=== PATIENT | female | born 1950 | race Caucasian/White ===

== ENCOUNTER 2019-12-13 08:37 | Outpatient (REF) | payer MEDICARE, SELFPAY ==
[2019-12-13 11:29] LABS: Glucose Urine UA NEG (NEG); Leukocyte Esterase Urine NEG (NEG); Nitrite Urine NEG (NEG); PH 5.5 (5.0-8.0); Specific Gravity - Urine >= 1.030 (1.005-1.025); Urine Blood 2+ (NEG); Urine Ketones NEG (NEG); Urine Protein NEG (NEG-TRACE)
[2019-12-13 11:34] LABS: Appearance Urine CLOUDY; Color Urine YELLOW
[2019-12-13 11:41] LABS: White Blood Count 4.9 X10*3/uL (4.8-10.8)
[2019-12-13 11:43] LABS: Hematocrit 46.5 % (37-47); Hemoglobin 14.9 g/dl (12.0-16.0); Mean Corpuscular Volume 93.8 fL (80-98); Platelet Count 143 X10*3/uL (160-400); Red Blood Count 4.96 X10*6/uL (4.20-5.50); Red Cell Distribution Width 12.9 % (11.0-16.0)
[2019-12-13 11:52] LABS: Squamous Epithelial Cell Urine 2+ /LPF; WBC Urine 0 /HPF (0-4)
[2019-12-13 11:53] LABS: Bacteria Urine 1+ /LPF
[2019-12-13 12:00] LABS: Alanine Aminotransferase 26 U/L (0-31); Albumin Level 4.2 g/dL (3.5-5.0); Alkaline Phosphatase 68 U/L (39-117); Anion Gap 13 (12-20); Aspartate Amino Transferase 14 U/L (5-31); Bilirubin Total 0.6 mg/dL (0.0-1.0); Blood Urea Nitrogen 15 mg/dL (9-16); Carbon Dioxide 28 mmol/L (22-29); Chloride 106 mmol/L (96-108); Cholesterol 277 mg/dL; Estimated Glomerular Filt Rate > 60; Glucose Fasting 110 mg/dL (60-99); HDL Cholesterol 51 mg/dL; LDL Cholesterol Calculated 189 mg/dl; Potassium 4.7 mmol/l (3.3-5.1); Sodium 142 mmol/L (135-145); Total Protein 6.6 g/dL (6.5-8.0); Triglycerides 185 mg/dL
[2019-12-13 12:03] LABS: Vitamin D 25-OH Total 28.2 ng/mL (>30)
== END 2019-12-13 08:38 | disposition home or self-care (01) ==
LOC: HO.HMGCLDS 08:37
PROVIDERS: PCP Internal Medicine; Visit Provider Internal Medicine
DX: E78.5 Hyperlipidemia, unspecified (principal); E55.9 Vitamin D deficiency, unspecified; R73.9 Hyperglycemia, unspecified
CPT/HCPCS: 36415; 80053; 80061; 81001; 82306; 85027

== ENCOUNTER 2019-12-20 12:22 | Outpatient (REF) | payer MEDICARE, SELFPAY ==
--- NOTE | 2019-12-20 12:30 | XR_ITS ---
EXAMINATION: XR BILATERAL SHOULDER CLINICAL INFORMATION: Pain and bilateral shoulder. COMPARISON: None. TECHNIQUE: 4 views each shoulder. FINDINGS: Right Shoulder: There is loss of right AC joint and glenohumeral joint space with periarticular spurring. There is lateral acromion spurring as well. A small 4 mm loose body suspected along the right shoulder joint. No bony erosive changes. The soft tissues are normal. Left Shoulder: There is no visible acute fracture, dislocation or subluxation seen. There is loss of left AC joint space with periarticular spurring and lateral acromial spurring. The soft tissues are normal. XR/XR shoulder LT min 2V IMPRESSION: Degenerative arthritic changes bilateral shoulder joints with a small loose body suspected along the posterior right shoulder joint space. The soft tissues are normal.
--- NOTE | 2019-12-20 12:30 | XR_ITS ---
EXAMINATION: XR BILATERAL SHOULDER CLINICAL INFORMATION: Pain and bilateral shoulder. COMPARISON: None. TECHNIQUE: 4 views each shoulder. FINDINGS: Right Shoulder: There is loss of right AC joint and glenohumeral joint space with periarticular spurring. There is lateral acromion spurring as well. A small 4 mm loose body suspected along the right shoulder joint. No bony erosive changes. The soft tissues are normal. Left Shoulder: There is no visible acute fracture, dislocation or subluxation seen. There is loss of left AC joint space with periarticular spurring and lateral acromial spurring. The soft tissues are normal. XR/XR shoulder RT min 2V IMPRESSION: Degenerative arthritic changes bilateral shoulder joints with a small loose body suspected along the posterior right shoulder joint space. The soft tissues are normal.
[2019-12-20 14:28] LABS: Alanine Aminotransferase 29 U/L (0-31); Albumin Level 4.3 g/dL (3.5-5.0); Alkaline Phosphatase 70 U/L (39-117); Anion Gap 13 (12-20); Aspartate Amino Transferase 18 U/L (5-31); Bilirubin Total 0.7 mg/dL (0.0-1.0); Blood Urea Nitrogen 13 mg/dL (9-16); Calcium 8.7 mg/dL (8.4-10.2); Carbon Dioxide 28 mmol/L (22-29); Chloride 106 mmol/L (96-108); Cholesterol 277 mg/dL; Estimated Glomerular Filt Rate > 60; Glucose Fasting 100 mg/dL (60-99); HDL Cholesterol 50 mg/dL; LDL Cholesterol Calculated 194 mg/dl; Potassium 4.7 mmol/l (3.3-5.1); Sodium 142 mmol/L (135-145); Total Protein 6.6 g/dL (6.5-8.0); Triglycerides 169 mg/dL
[2019-12-20 14:45] LABS: Estimated Average Glucose 123 mg/dL; Hemoglobin A1c % 5.9 %
== END 2019-12-20 12:23 | disposition home or self-care (01) ==
LOC: HO.HMGCX 12:22
PROVIDERS: PCP Internal Medicine; Visit Provider Internal Medicine
DX: M25.511 Pain in right shoulder (principal); M25.512 Pain in left shoulder
CPT/HCPCS: 73030; 80053; 80061; 83036

== ENCOUNTER → 2020-02-06 09:13 | Outpatient (BNVA) | payer MEDICARE, SELFPAY | PROVIDERS: PCP Internal Medicine; Visit Provider Orthopaedic Surgery | DX: M75.51 Bursitis of right shoulder (principal) | CPT/HCPCS: 20610; 99202; J1100 ==

== ENCOUNTER 2020-04-10 13:00 | Outpatient (RCR) | payer MEDICARE, SELFPAY ==
--- NOTE | 2020-03-01 10:59 | MHC.PT.EP ---
[facility] [place] Office [place] Office [place] Office [address] Frankie Alvarez [address] [phone] F: [phone] F: [phone] F: [phone] F: [phone] Physical Therapy Plan of Care Date of Evaluation: 03/01/20 Date of Surgery: N/A Diagnosis: bursitis of left shoulder, bursitis of right shoulder Assessment: pt presents w/ pain and AROM limitations that may be consistent w/ shoulder, cervical, and magnus-scapular impairments of muscular extensibility. pt's pain may also be result of chronic poor cervicothoracic and shoulder posturing. A gentle stretching and strengthening program would be appropriate to remediate current impairments; however, if she is not progressing as expected a cervical Senait assessment may be necessary to rule in/out cervical nerve root involement. pt reported I feel looser after therapeutic exercise attempted at initial eval. pt presents to physical therapy with pain, decreased range of motion, decreased strength, impaired functional mobility, impaired postural awareness, and gait deviations. pt is a good candidate for skilled PT due to age, potential remediation of impairments, typical disease/condition progression and prognosis, comorbidities, and motivation. pt would benefit from tailored strengthening and stretching exercise program, functional training, gait training, postural re-training, neuromuscular re-education, modalities as needed for pain, equipment safety demonstration. Frequency and Duration: The patient will be seen 2x/wk for 5 wks Short Term Goals: pt will be I w/ HEP to promote self-management of condition. pt will improve R shoulder flexion by 15 degrees to promote ease in reaching for objects on higher shelves. Contact Center Consultant Goals: pt will report statistically significant improvement in self-reported outcome measure, Tiffany, to promote return to PLOF. pt will report <1/10 R shoulder pain w/ washing her hair to promote return to PLOF. Treatment Plan: Modalities to reduce pain, spasms and effusion. Manual therapy to restore motion and function. Therapeutic exercise to improve strength and flexibility. Neuromuscular re-education for posture and balance. Therapeutic activities to return to functional activities of daily living. Electronically signed by: Dayana Acuna PT, DPT Please sign and return to therapist. Thank you for your referral.
--- NOTE | 2020-05-22 14:58 | MHC.PT.DC ---
[facility] [place] Office [place] Office [place] Office [address] Frankie Alvarez [address] [phone] F: [phone] F: [phone] F: [phone] F: [phone] Physical Therapy Discharge Report Diagnosis: bursitis of left shoulder, bursitis of right shoulder Date of Surgery: N/A Date of Evaluation: 03/01/20 Date of Discharge: 04/22/20 Treatments to Date: 11 Cancellations to Date: 0 No Shows to Date: 0 Discharge Status: Improved Function Independent with HEP Discharge Summary: SPADI 49/130. pt I with HEP. no adverse reactions. progressed well over the course of skilled PT. d/c to HEP at this time. Electronically signed by: Ede Nova, PT Please sign and return to therapist. Thank you for your referral.
== END 2020-05-22 14:59 | disposition home or self-care (01) ==
LOC: HO.PTCHIC 13:00
PROVIDERS: Visit Provider Orthopaedic Surgery
DX: M75.51 Bursitis of right shoulder (principal); M75.52 Bursitis of left shoulder
CPT/HCPCS: 97110; 97140; 97161

== ENCOUNTER 2020-04-18 09:40 | Outpatient (REF) | payer MEDICARE, SELFPAY ==
[2020-04-18 11:22] LABS: Hematocrit 45.4 % (37-47); Hemoglobin 14.6 g/dl (12.0-16.0); Mean Corpuscular HGB Conc 32.2 g/dl (31.0-35.0); Mean Corpuscular Hemoglobin 29.8 pg (27.0-33.0); Mean Corpuscular Volume 92.7 fL (80-98); Mean Platelet Volume 12.7 fL (9.4-12.3); Platelet Count 141 X10*3/uL (160-400); Red Cell Distribution Width 12.7 % (11.0-16.0); White Blood Count 5.4 X10*3/uL (4.8-10.8)
[2020-04-18 12:03] LABS: Alanine Aminotransferase 30 U/L (0-31); Albumin Level 4.4 g/dL (3.5-5.0); Alkaline Phosphatase 75 U/L (39-117); Anion Gap 10 (12-20); Aspartate Amino Transferase 19 U/L (5-31); Blood Urea Nitrogen 11 mg/dL (9-16); Calcium 9.1 mg/dL (8.4-10.2); Carbon Dioxide 29 mmol/L (22-29); Chloride 102 mmol/L (96-108); Cholesterol 156 mg/dL; Estimated Glomerular Filt Rate > 60; Glucose Fasting 107 mg/dL (60-99); HDL Cholesterol 47 mg/dL; LDL Cholesterol Calculated 80 mg/dl; Sodium 137 mmol/L (135-145); Total Protein 6.7 g/dL (6.5-8.0); Triglycerides 146 mg/dL
== END 2020-04-18 09:41 | disposition home or self-care (01) ==
LOC: HO.HMGCLDS 09:40
PROVIDERS: PCP Internal Medicine; Visit Provider Internal Medicine
DX: R73.9 Hyperglycemia, unspecified (principal); E78.5 Hyperlipidemia, unspecified; E55.9 Vitamin D deficiency, unspecified; R42 Dizziness and giddiness
CPT/HCPCS: 36415; 80053; 80061; 85027

== ENCOUNTER 2020-05-02 12:44 | Outpatient (REF) | payer MEDICARE, SELFPAY ==
--- NOTE | ~2020-05-02 | MR_ITS ---
EXAMINATION: MR SHOULDER WITHOUT CONTRAST, RIGHT CLINICAL INFORMATION: Injury of right shoulder. COMPARISON: None TECHNIQUE: MRI of the shoulder without contrast was performed on a high-field scanner. Exam is limited as the patient could not complete the entire examination and there is motion-degrading artifact present throughout the exam. FINDINGS: ROTATOR CUFF: Evaluation is limited as above. Supraspinatus: There is a full-thickness defect midsubstance portion of the tendon measuring 12 mm medial to lateral and 8 mm AP. No significant atrophy or fatty infiltration. There is a low signal focus measuring approximately 8 mm at the infraspinatus insertion consistent with calcific tendinosis. Remaining rotator cuff muscles and tendons are unremarkable. BICEPS: Normal. CORACOACROMIAL ARCH: The undersurface of the acromion is curved with no subacromial spur. 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 BURSA: Trace fluid in subacromial-subdeltoid bursa likely related to the rotator cuff tear or associated bursitis. LABRUM/CAPSULE: Normal. GLENOHUMERAL JOINT/MARROW: Small marginal osteophytes along the superior glenoid. Cartilage grossly intact. Overall minimal glenohumeral arthrosis. There is a mild joint effusion and synovitis. MR/MR shoulder RT wo con IMPRESSION: Limited examination as the patient could not tolerate completion of exam and there is motion-degrading artifact throughout the study. Despite this limitation there does appear to be a full-thickness rotator cuff tear of the supraspinatus without atrophy or fatty infiltration of the muscles. Calcific tendinosis of the infraspinatus tendon insertion. Advanced arthrosis of the acromioclavicular joint. Mild arthrosis of the glenohumeral joint with mild joint effusion and synovitis.
== END 2020-05-02 12:45 | disposition home or self-care (01) ==
LOC: HO.MRI 12:44
PROVIDERS: Visit Provider Internal Medicine
DX: S49.91XA Unspecified injury of right shoulder and upper arm, initial encounter (principal); X58.XXXA Exposure to other specified factors, initial encounter; Y93.9 Activity, unspecified; Y92.9 Unspecified place or not applicable; Y99.9 Unspecified external cause status
CPT/HCPCS: 73221

== ENCOUNTER 2020-10-30 09:31 | Outpatient (REF) | payer MEDICARE, SELFPAY ==
[2020-10-30 11:33] LABS: Hematocrit 45.1 % (37-47); Hemoglobin 14.8 g/dl (12.0-16.0); Mean Corpuscular HGB Conc 32.8 g/dl (31.0-35.0); Mean Corpuscular Hemoglobin 30.1 pg (27.0-33.0); Mean Corpuscular Volume 91.9 fL (80-98); Platelet Count 162 X10*3/uL (160-400); Red Blood Count 4.91 X10*6/uL (4.20-5.50); Red Cell Distribution Width 13.2 % (11.0-16.0); White Blood Count 5.2 X10*3/uL (4.8-10.8)
[2020-10-30 11:53] LABS: Alanine Aminotransferase 31 U/L (0-31); Albumin Level 4.4 g/dL (3.5-5.0); Alkaline Phosphatase 71 U/L (39-117); Anion Gap 13 (12-20); Aspartate Amino Transferase 18 U/L (5-31); Bilirubin Total 0.8 mg/dL (0.0-1.0); Blood Urea Nitrogen 11 mg/dL (9-16); Calcium 9.8 mg/dL (8.4-10.2); Carbon Dioxide 24 mmol/L (22-29); Chloride 109 mmol/L (96-108); Cholesterol 184 mg/dL; Estimated Average Glucose 126 mg/dL; Estimated Glomerular Filt Rate > 60; Glucose Fasting 113 mg/dL (60-99); HDL Cholesterol 54 mg/dL; Hemoglobin A1C 159.7601 umol/L; LDL Cholesterol Calculated 104 mg/dl; Potassium 4.5 mmol/L (3.3-5.1); Sodium 141 mmol/L (135-145); Total Protein 6.6 g/dL (6.5-8.0); Triglycerides 131 mg/dL
== END 2020-10-30 09:32 | disposition home or self-care (01) ==
LOC: HO.HMGCLDS 09:31
PROVIDERS: PCP Internal Medicine; Visit Provider Internal Medicine
DX: E55.9 Vitamin D deficiency, unspecified (principal); E78.5 Hyperlipidemia, unspecified; R73.9 Hyperglycemia, unspecified
CPT/HCPCS: 36415; 80053; 80061; 82306; 83036; 85027

== ENCOUNTER 2021-02-06 14:19 | Outpatient (REF) | payer MEDICARE, SELFPAY ==
--- NOTE | ~2021-02-06 | FL_ITS ---
EXAMINATION: XR MODIFIED BARIUM SWALLOW CLINICAL INFORMATION: GERD COMPARISON: None TECHNIQUE: Fluoroscopy provided for modified barium swallow FINDINGS: Modified barium swallow performed by speech pathologist. Patient swallowed liquids and solids of different consistencies. No aspiration is seen. FLUOROSCOPY TIME: 0.9 minutes DOSE AREA PRODUCT: 0.9 gycm2 (microgray-meter squared) FL/FL barium swallow modified IMPRESSION: Modified barium swallow performed by speech pathologist.. No aspiration seen. See speech pathology report for details.
--- NOTE | 2021-02-06 16:59 | MHC.SL.IMP ---
Date of Plan of Treatment: 02/06/21 Onset of Symptoms/Illness: 02/04/21 Date Treatment Started: 02/06/21 Admitting Diagnosis: Bursitis of left shoulder and right shoulder GERD High cholesterol Hyperglycemia Hyperlipidemia Ingrown toenail of both feet Vertigo Vitamin D deficiency Primary Speech & Language Diagnosis: R13.14 Pharyngoesophageal Phase Dysphagia Reason for Today's Visit: 49874 Modified Barium Swallow Study Pre-evaluation Dietary Consistencies: Regular Pre-evaluation Liquid Consistency: Thin Pre-evaluation Medication Administration: Whole with Liquid Medical History: Modified Barium Swallow Study Fluoroscopic Evaluation of Swallowing Function CPT Code 30490 Evaluation Year: 2020 Reason for Study: Patient reports that she regurgitates food. Referring Physician: Karly Pineda MD Evaluating Clinician: Emmanuelle Clemente M.A., CCC-MANAGER PROVIDER RELATIONS Study Number: 1 Patient Name: Asmita Chase Status: Outpatient, Ambulatory Age: 70 Gender: Female MEDICAL HISTORY: Year of Onset or Diagnosis: 2019 Comorbidities: Bursitis of left shoulder and right shoulder GERD High cholesterol Hyperglycemia Hyperlipidemia Ingrown toenail of both feet Vertigo Vitamin D deficiency Current (pre-evaluation) Intake/Diet: Route: PO Diet Grade: Regular Liquid Consistencies: Thin Pre-Study Functional Oral Intake Scale (FOIS): 7- Total oral intake with no restrictions Pain: None reported at time of study SUBJECTIVE: Patient is a 70 year old female who attended this exam unaccompanied. Patient is Swedish-speaking and was seen by a bilingual speech-language pathologist who speaks Swedish. Patient reports onset of dysphagia approximately 1 year ago. Patient denies pain when swallowing. Patient reports regurgitation and vomiting during meals, and generally feeling unwell after eating. Oral Motor Exam Facial Symmetry: Symmetrical Mouth Occlusion: Normal Oral-Facial Teeth Characteristics: Intact/Normal Tongue Size: Normal Tongue Frenum Length: Normal Is patient able to manage secretions?: Yes Food and Liquid Trials: Oral Impairment: Lip Closure: 0=No labial escape Oral Impairment: Tongue Control During Bolus Hold: 0=Cohesive bolus between tongue to palatal seal Oral Impairment: Bolus Preparation/Mastication: 0=Timely and efficient chewing and mashing Oral Impairment: Bolus Transport/Lingual Motion: 2=Slowed tongue motion Oral Impairment: Oral Residue: 1=Trace residue lining oral structures Oral Impairment:Initiation of Pharyngeal Swallow: 2=Bolus head at posterior laryngeal surface of epiglottis Pharyngeal Impairment: Soft Palate Elevation: 0=No bolus between soft palate (SP)/pharyngeal wall (PW) Pharyngeal Impairment: Laryngeal Elevation: 1=Partial thyroid cartilage/arytenoids to epiglottic petiole movement Pharyngeal Impairment: Anterior Hyoid Excursion: 0=Complete anterior movement Pharyngeal Impairment: Epiglottic Movement: 1=Partial inversion Pharyngeal Impairment: Laryngeal Vestibular Closure:: 1=Incomplete: narrow column air/contrast in laryngeal vestibule Pharyngeal Impairment: Pharyngeal Stripping Wave: 0=Present: complete Pharyngeal Impairment: Pharyngeal Contraction: Did not test Pharyngeal Impairment: Pharyngoesophageal Segment Openin=Complete distension and complete duration: no obstruction of flow Pharyngeal Impairment: Tongue Base (TB) Retraction: 2=Narrow column of contrast/air between TB and posterior PW Pharyngeal Impairment: Pharyngeal Residue: 1=Trace residue within or on pharyngeal structures Pharyngeal Impairment: Esophageal Clearance Upright Position: Did not test Impressions and Recommendations Clinical Observations: OBJECTIVE: Time-out: performed at 02:45 Evaluation Start: 02:30; Stop: 02:40 Patient Positioning: Seated/Reclined less than 70 degrees Viewing Planes: LATERAL ONLY Contrast: MBSImP? Standardized Protocol using commercially prepared, standardized Barium viscosities, including: Varibar? THIN LIQUID (40% w/v, <15 cps) , 1/2 Shortbread Cookie (1 x1 x.25 ) MBSImP ID: [id number] MBSImP Results: Lip closure for intraoral bolus containment resulted in no labial escape. Tongue control during bolus hold maintained a cohesive bolus held between tongue to palate seal. Bolus preparation and mastication resulted in timely and efficient chewing and mashing. Bolus transport/lingual motion was with slowed tongue motion. Oral residue was a trace, lining oral structures. Initiation of the pharyngeal swallow occurred as the bolus head was at the posterior laryngeal surface of the epiglottis. Soft palate elevation resulted in no bolus between the soft palate and the pharyngeal wall. Laryngeal elevation was decreased, with partial superior movement of the thyroid cartilage/partial approximation of the arytenoids to the epiglottic petiole. Anterior hyoid excursion demonstrated complete anterior movement. Epiglottic movement resulted in partial inversion. Laryngeal vestibular closure was incomplete, with a narrow column of air/contrast noted within the laryngeal vestibule at the height of the swallow. Pharyngeal stripping wave was present and complete. Pharyngeal contraction could not be determined due to logistical reasons not related to physiologic impairment. Pharyngoesophageal segment opening was completely distended for complete duration with no obstruction of bolus flow. Tongue base retraction allowed a narrow column of contrast or air between the retracted tongue base and the posterior pharyngeal wall. Pharyngeal residue was a trace within or on pharyngeal structures. Esophageal clearance in the upright position could not be assessed due to logistical reasons not related to physiologic impairment. Oral Impairment Score: 4 Pharyngeal Impairment Score: 5 (absence of score, component 13) Esophageal Impairment Score: --- (absence of score, component 17) Laryngeal Penetration and Aspiration: Penetration was observed in today's study. Thin Contrast entered the airway, remained above the vocal folds, and was ejected from the airway. ASSESSMENT: Clinician Assessment: This exam was conducted by a multidisciplinary team, which included radiologist, radiologist tool rental technician, speech-language pathologist, and student success counselor clinician. Patient was seated at 90 degree upright position for lateral view only. Patient fed herself without any difficulty. Patient trialed the following liquid and solid consistencies: 5 mL thin liquid barium, sequential cup sip thin liquid barium, pureed solid (mixture applesauce with barium paste), ground solid (mixture chicken salad with barium paste), regular solid (Adalgisa Doone cookie coated with barium). Good labial seal with no interlabial escape. Cohesive bolus between tongue to palatal seal, with no premature posterior spillage prior to initiation of pharyngeal swallow trigger. Mildly slowed AP transport of bolus. Timely and efficient rotary chewing pattern, resulting in good oral clearance across all consistencies. Delayed pharyngeal swallow trigger initiated when bolus head reached posterior laryngeal surface of epiglottis. Partial laryngeal elevation with partial inversion of epiglottis. Note episode of flash penetration when patient was taking sequential sips of liquid. Contrast initially coated posterior surface of epiglottis and spontaneously ejected. No evidence of aspiration with solids and liquids. No nasopharyngeal reflux. Good clearance of valleculae and pyriform sinuses. Trace residue on tongue blade and tongue base. No obstruction of flow through PES. Liquid Intake Recommendation: Thin Liquid Intake Strategies: Small Sips Dietary Recommendations: Regular Medication Administration: Whole with Liquid Compensatory Strategies Recommended: Sitting Upright (90 deg) Small Bites and Sips Rate of Ingestion Change Supervision during eating and or drinking: None Needed Recommendation for Speech Therapy: NA:Typical Evaluation PLAN: Intake Recommendations: Route: PO Diet Grade: Regular Liquid Consistencies: Thin Post-Study Functional Oral Intake Scale (FOIS): 7- Total oral intake with no restrictions Recommend patient to resume unmodified consistencies regular solids and thin liquids. Patient may benefit from a referral to a negative developer specialist given her reports of esophageal dysphagia (i.e. vomiting/ regurgitation). Suggested Referrals: The patient might benefit from a referral to: Gastroenterology Indication for Referral: Patient?s complaints of vomiting/regurgitation. Therapy Recommendations: Therapy will be discontinued Prognosis for Improvement: The prognosis for the patient to meet nutritional needs by mouth is excellent based on degree of impairment. Clinician - Supplemental, Miscellaneous Communication: It is important to note MBSS objective studies are snapshots in time and Patient function might vary with factors such as time of day or concomitant medical conditions. For this reason, the final treatment plan for this patient should rest with their medical care team. Additional recommendations should be considered with the totality of the Patient in mind. Thank for the opportunity to participate in the care of this patient. If you have any questions about the content of this report, please contact the [facility]. Education: Education regarding findings from today's study and plans for therapy were provided to Patient only through Verbal Instruction. Understanding was expressed by the Patient only. Sql Database Developer Clinician/Clinical Fellow: Yes: Mayra Minor Supervisory Statement: N/A Speech Language Pathologist: Emmanuelle Clemente M.A., CCC-MANAGER PROVIDER RELATIONS
== END 2021-02-06 14:20 | disposition home or self-care (01) ==
LOC: HO.XRAY 14:19
PROVIDERS: Visit Provider Internal Medicine
DX: K21.9 Gastro-esophageal reflux disease without esophagitis (principal)
CPT/HCPCS: 74230; 92611

== ENCOUNTER 2021-04-30 09:19 | Outpatient (REF) | payer MEDICARE, SELFPAY ==
[2021-04-30 11:58] LABS: Hematocrit 45.2 % (37.0-47.0); Hemoglobin 14.3 g/dl (12.0-16.0); Mean Corpuscular HGB Conc 31.6 g/dl (31.0-35.0); Mean Corpuscular Hemoglobin 29.9 pg (27.0-33.0); Mean Corpuscular Volume 94.4 fL (80.0-98.0); Mean Platelet Volume 12.3 fL (9.4-12.3); Platelet Count 147 X10*3/uL (160-400); Red Blood Count 4.79 X10*6/uL (4.20-5.50); Red Cell Distribution Width 13.4 % (11.0-16.0); White Blood Count 5.3 X10*3/uL (4.8-10.8)
[2021-04-30 12:05] LABS: Estimated Average Glucose 123 mg/dL; Hemoglobin A1c % 5.9 %
[2021-04-30 12:23] LABS: Alanine Aminotransferase 27 U/L (0-31); Albumin Level 4.2 g/dL (3.5-5.0); Alkaline Phosphatase 75 U/L (39-117); Anion Gap 11 (12-20); Aspartate Amino Transferase 16 U/L (5-31); Bilirubin Total 0.9 mg/dL (0.0-1.0); Blood Urea Nitrogen 12 mg/dL (9-16); Calcium 9.5 mg/dL (8.4-10.2); Carbon Dioxide 27 mmol/L (22-29); Chloride 107 mmol/L (96-108); Cholesterol 173 mg/dL; Estimated Glomerular Filt Rate > 60; Glucose Fasting 117 mg/dL (60-99); HDL Cholesterol 49 mg/dL; LDL Cholesterol Calculated 95 mg/dl; Potassium 4.3 mmol/L (3.3-5.1); Sodium 141 mmol/L (135-145); Total Protein 6.6 g/dL (6.5-8.0); Triglycerides 148 mg/dL
[2021-04-30 12:26] LABS: TSH reflex Free T4 1.31 uIU/mL (0.32-4.0); Vitamin D 25-OH Total 33.2 ng/mL (>30)
== END 2021-04-30 09:20 | disposition home or self-care (01) ==
LOC: HO.HMGCLDS 09:19
PROVIDERS: Visit Provider Internal Medicine
DX: E55.9 Vitamin D deficiency, unspecified (principal); E78.5 Hyperlipidemia, unspecified; R73.9 Hyperglycemia, unspecified
CPT/HCPCS: 36415; 80053; 80061; 82306; 83036; 84443; 85027

== ENCOUNTER → 2021-05-27 08:05 | Outpatient (BNVA) | payer MEDICARE, SELFPAY | PROVIDERS: PCP Internal Medicine; Visit Provider Obstetrics & Gynecology | DX: N81.6 Rectocele (principal) | CPT/HCPCS: 99202 ==

== ENCOUNTER 2022-02-19 09:40 | Outpatient (REF) | payer MEDICARE, SELFPAY ==
[2022-02-19 11:11] LABS: MANUAL DIFF FLAG NO
[2022-02-19 11:25] LABS: Basophils Percent Auto 0.6 % (0-2); Eosinophils Absolute Auto 0.1 X10*3/uL (0.0-0.4); Eosinophils Percent Auto 1.4 % (0-4); Hematocrit 46.4 % (37.0-47.0); Hemoglobin 14.9 g/dl (12.0-16.0); Lymphocytes Absolute Auto 1.8 X10*3/uL (1.2-4.9); Lymphocytes Percent Auto 35.9 % (20-40); Mean Corpuscular HGB Conc 32.1 g/dl (31.0-35.0); Mean Corpuscular Hemoglobin 29.7 pg (27.0-33.0); Mean Corpuscular Volume 92.4 fL (80.0-98.0); Mean Platelet Volume 11.3 fL (9.4-12.3); Monocytes Absolute Auto 0.3 X10*3/uL (0.1-1.2); Monocytes Percent Auto 6.7 % (2-11); Neutrophils Absolute Auto 2.7 x10*3/uL (2.0-8.3); Neutrophils Percent Auto 55.4 % (45-73); Platelet Count 154 X10*3/uL (160-400); Red Blood Count 5.02 X10*6/uL (4.20-5.50); Red Cell Distribution Width 13.1 % (11.0-16.0); White Blood Count 4.9 X10*3/uL (4.8-10.8)
[2022-02-19 11:36] LABS: Estimated Average Glucose 114 mg/dL; Hemoglobin A1c % 5.6 %
[2022-02-19 11:59] LABS: Alanine Aminotransferase 15 U/L (0-31); Albumin Level 4.2 g/dL (3.5-5.0); Alkaline Phosphatase 81 U/L (39-117); Anion Gap 10 (12-20); Aspartate Amino Transferase 12 U/L (5-31); Bilirubin Total 0.8 mg/dL (0.0-1.0); Blood Urea Nitrogen 15 mg/dL (9-16); Calcium 9.6 mg/dL (8.4-10.2); Carbon Dioxide 30 mmol/L (22-29); Chloride 106 mmol/L (96-108); Cholesterol 229 mg/dL; Estimated Glomerular Filt Rate > 60; Glucose Fasting 102 mg/dL (60-99); HDL Cholesterol 51 mg/dL; LDL Cholesterol Calculated 147 mg/dl; Potassium 4.7 mmol/L (3.3-5.1); Sodium 141 mmol/L (135-145); TSH reflex Free T4 1.92 uIU/mL (0.32-4.0); Total Protein 6.6 g/dL (6.5-8.0); Triglycerides 155 mg/dL; Vitamin D 25-OH Total 30.6 ng/mL (>30)
== END 2022-02-19 09:41 | disposition home or self-care (01) ==
LOC: HO.HMGCLDS 09:40
PROVIDERS: PCP Internal Medicine; Visit Provider Internal Medicine
DX: Z00.00 Encounter for general adult medical examination without abnormal findings (principal); E55.9 Vitamin D deficiency, unspecified; E78.5 Hyperlipidemia, unspecified; R73.9 Hyperglycemia, unspecified
CPT/HCPCS: 36415; 80053; 80061; 82306; 83036; 84443; 85025

== ENCOUNTER 2023-08-21 07:52 | Outpatient (REF) | payer MEDICARE, SELFPAY ==
[2023-08-21 10:24] LABS: MANUAL DIFF FLAG NO
[2023-08-21 10:34] LABS: Basophils Percent Auto 0.7 % (0-2); Eosinophils Absolute Auto 0.1 X10*3/uL (0.0-0.4); Eosinophils Percent Auto 1.5 % (0-4); Hemoglobin 14.9 g/dl (12.0-16.0); Imm Gran Abs Auto 0.01 X10*3/uL (0.00-0.03); Imm Gran Pct Auto 0.2 % (0.0-0.4); Lymphocytes Percent Auto 38.2 % (20-40); Mean Corpuscular HGB Conc 32.4 g/dl (31.0-35.0); Mean Corpuscular Volume 92.7 fL (80.0-98.0); Mean Platelet Volume 12.1 fL (9.4-12.3); Monocytes Absolute Auto 0.4 X10*3/uL (0.1-1.2); Monocytes Percent Auto 7.5 % (2-11); Neutrophils Absolute Auto 2.8 x10*3/uL (2.0-8.3); Neutrophils Percent Auto 51.9 % (45-73); Platelet Count 149 X10*3/uL (160-400); Red Blood Count 4.96 X10*6/uL (4.20-5.50); Red Cell Distribution Width 13.5 % (11.0-16.0); White Blood Count 5.3 X10*3/uL (4.8-10.8)
[2023-08-21 10:42] LABS: Estimated Average Glucose 120 mg/dL; Hemoglobin A1c % 5.8 % (<6.0)
[2023-08-21 10:58] LABS: Alanine Aminotransferase 15 U/L (0-31); Albumin Level 4.1 g/dL (3.5-5.0); Alkaline Phosphatase 74 U/L (39-117); Anion Gap 10 (12-20); Aspartate Amino Transferase 14 U/L (5-31); Bilirubin Total 0.5 mg/dL (0.0-1.0); Blood Urea Nitrogen 13 mg/dL (9-16); Calcium 9.5 mg/dL (8.4-10.2); Carbon Dioxide 30 mmol/L (22-29); Chloride 106 mmol/L (96-108); Cholesterol 220 mg/dL (<200); Estimated Glomerular Filt Rate > 60; Glucose Fasting 115 mg/dL (60-99); HDL Cholesterol 54 mg/dL (>40); LDL Cholesterol Calculated 129 mg/dL (<100); Potassium 4.3 mmol/L (3.3-5.1); Sodium 142 mmol/L (135-145); Total Protein 6.8 g/dL (6.5-8.0); Triglycerides 189 mg/dL (<150)
[2023-08-21 11:01] LABS: Vitamin D 25-OH Total 60.7 ng/mL (>30)
== END 2023-08-21 07:53 | disposition home or self-care (01) ==
LOC: HO.HMGCLDS 07:52
PROVIDERS: PCP Internal Medicine; Visit Provider Internal Medicine
DX: Z00.00 Encounter for general adult medical examination without abnormal findings (principal); E78.5 Hyperlipidemia, unspecified; R73.9 Hyperglycemia, unspecified; E55.9 Vitamin D deficiency, unspecified
CPT/HCPCS: 36415; 80053; 80061; 82306; 83036; 84443; 85025

== ENCOUNTER 2023-08-27 09:01 | Outpatient (AMB) | payer MEDICARE, SELFPAY ==
[2023-08-27 09:04] VITALS: BP 124/80; PULSE 76; O2SAT 98; BMI 31.9
--- NOTE | 2023-08-27 09:04 | A.OFFPC_ITS ---
Vital Signs 08/27/23 09:04 Height 5 ft 4 in Weight 186 lb BMI 31.9 BP 124/80 Blood Pressure Location Lt brachial Position Sitting Pulse 76 Pulse Source Pulse Oximeter Pulse Oximetry (%) 98 Oxygen Delivery Method Room Air Intake Visit Reasons: Annual PE Intake Note: Pt is here today for PE. Allergies No Known Allergies Allergy (Verified 08/27/23 09:07) Medication List - Last Reconciled 08/27/23 by Karly Pineda MD cholecalciferol (vitamin D3) 50 mcg PO DAILY desoximetasone 0.25% 1 appl topical DAILY PRN rosuvastatin 10 mg PO DAILY Tobacco use date assessed: 08/27/23 Fall risk assessment: No Falls in past year Last assessed Fall Risk: 08/27/23 Dental Screening Dental Screen Date: 08/27/23 Did you have a dental visit in the last 12 months?: Yes Did you have a dental problem in the last 6 months where you did not have access to dental care?: No Was dental information given to patient?: Patient has dentist HPI Annual PE HPI Details Pt presents for PE. [facility] Medical History Trochanteric bursitis of left hip Uterine prolapse GERD (gastroesophageal reflux disease) Ingrown toenail of both feet Right shoulder injury Vertigo Bursitis of right shoulder Bursitis of left shoulder High cholesterol Normal Pap smear Mammogram normal Vitamin D deficiency Hyperglycemia Annual physical exam Shoulder pain, bilateral Hyperlipidemia Surgical History H/O colonoscopy No pertinent past surgical history Family History Mother No problems noted. Father No problems noted. Social History Housing: House Alcohol intake: never Patient Tobacco Use Status: Current everyday Tobacco user Tobacco use type: Cigarette Cigarettes Per Day: 3 e-Cigarette/Vaping Use: Never Used service: No Current occupational status: retired Current occupation: right handed Cognitive needs: No Hearing needs: No Vision needs: Yes Female Reproductive History Menstrual Age of Menarche: 12 Questionnaire PHQ-9 Over the last 2 weeks, how often have you been bothered by any of the following problems? 1. Little interest or pleasure in doing things: not at all 2. Feeling down, depressed, or hopeless: not at all 3. Trouble falling or staying asleep, or sleeping too much: not at all 4. Feeling tired or having little energy: not at all 5. Poor appetite or overeating: not at all 6. Feeling bad about yourself - or that you are a failure or have let yourself or your family down: not at all 7. Trouble concentrating on things, such as reading the newspaper or watching television: not at all 8. Moving or speaking so slowly that other people could have noticed. Or the opposite - being so fidgety or restless that you have been moving around a lot more than usual: not at all 9. Thoughts that you would be better off or of hurting yourself in some way: not at all Total score: 0 Depression Screening Interpretation: Negative Depression Screening Done: Yes Source: Developed by Drs. Bruno Arrington, Nae Mejia, Shakeel Penny and colleagues, with an educational bolivar from [employer]. Thrive Questionnaire Date Thrive assessed: 08/27/23 I am a: Patient What is your living situation today?: I have a steady place to live Within the past 12 months, did the food you bought not last and you didn't have the money to get more?: Never true Within the past 12 months, did you worry whether your food would run out before you got money to buy more?: Never true Do you have trouble paying for medicines?: No Do you have trouble getting transportation to medical appointments?: No Do you have trouble paying your heating and electricity bill?: No Do you have trouble taking care of your child, family member or friend?: No Do you have trouble with day-to-day activities such as bathing, preparing meals, shopping, managing finances, etc.?: No Are you currently unemployed and looking for a job?: No Are you interested in more education?: No Please select the resources that you would like help with: None THRIVE Score: 0 AUDIT C Alcohol Use Questionnaire (AUDIT-C) 1. How often do you have a drink containing alcohol?: Never 3. How often do you have six or more drinks on one occasion?: Never Total Score: 0 POLO-7 AMB Questionnaire POLO-7 Date POLO - 7 assessed: 08/27/23 Feeling nervous, anxious, or on edge: 0 = Not at all Not being able to stop or control worryin = Not at all Worrying too much about different things: 0 = Not at all Trouble relaxin = Not at all Being so restless that it is hard to sit still: 0 = Not at all Becoming easily annoyed or irritable: 0 = Not at all Feeling afraid as if something awful might happen: 0 = Not at all Total POLO-7 score (0-4 normal; 5-9 mild; 10-14 moderate; 15-21 severe): 0 Source: Developed by Drs. Bruno Arrington, Nae Mejia, Shakeel Penny and colleagues, with an educational bolivar from [employer]. Review of Systems Const All systems reviewed & are unremarkable except as noted in HPI and below Reports no additional complaints Eyes Reports no additional complaints ENT Reports no additional complaints Card Reports no additional complaints Resp Reports no additional complaints GI Reports no additional complaints Physical exam (Primary Care) Vital Signs: Last Vital Signs Pulse 76 08/27/23 09:04 BP 124/80 08/27/23 09:04 Pulse Ox 98 08/27/23 09:04 Oxygen Delivery Method Room Air 08/27/23 09:04 BMI result Body Mass Index 31.9 Tobacco/Smoking Status: Tobacco use Status Tobacco use date assessed 08/27/23 08/27/23 09:10 Patient Tobacco Use Status Current everyday Tobacco 08/27/23 09:05 Tobacco use type Cigarette 08/27/23 09:05 e-Cigarette/Vaping Use Never Used 08/27/23 09:05 PHQ-9: PHQ-9 Score PHQ-9: Total score 0 08/27/23 09:10 Depression Screening Interpretation: Negative Thrive Assessment: Date of Thrive Assessment Date Thrive assessed 08/27/23 08/27/23 09:10 Const General: no acute distress HENMT Head: Yes normal to inspection Face and sinus: Yes normal facial exam Mouth: Normal oral and palatal mucosa present Throat: Yes posterior oropharynx normal Eyes General: appearance normal, both eyes and all related structures Neck Neck: Yes no lymphadenopathy and Yes supple Resp Effort & Inspection: normal respiratory effort Auscultation: clear to auscultation bilaterally Cardio Rhythm: regular rhythm Heart sounds: S1 normal heart sound present and S2 normal heart sound present GI Inspection: Yes normal to inspection Palpation (GI): Soft to palpation Percussion: Yes normal to percussion Auscultation: normal bowel sounds Assessment and Plan Assessment & Plan (1) Hyperlipidemia: Code(s): E78.5 - Hyperlipidemia, unspecified Plan: Medication compliance discussed with the patient. Continue low-cholesterol diet and Crestor (2) Annual physical exam: Code(s): Z00.00 - Encounter for general adult medical examination without abnormal findings Plan: Well-balanced diet regular physical activity weight loss discussed with the patient. She has up-to-date with the mammogram. Patient declined colonoscopy Cologuard will be sent. Follow-up in 1 year with fasting labs. (3) Hyperglycemia: Code(s): R73.9 - Hyperglycemia, unspecified Plan: ADA diet increase exercise weight loss discussed with the patient Orders: Orders Comprehensive [place]. Panel Fast 1 Year E78.5 - Hyperlipidemia, unspecified, R73.9 - Hyperglycemia, unspecified, Z00.00 - Encounter for general adult medical examination without abnormal findings Complete Blood Count Auto Diff 1 Year E78.5 - Hyperlipidemia, unspecified, R73.9 - Hyperglycemia, unspecified, Z00.00 - Encounter for general adult medical examination without abnormal findings Microalbumin, Random (w Creat) 1 Year E78.5 - Hyperlipidemia, unspecified, R73.9 - Hyperglycemia, unspecified, Z00.00 - Encounter for general adult medical examination without abnormal findings Lipid Panel 1 Year E78.5 - Hyperlipidemia, unspecified, R73.9 - Hyperglycemia, unspecified, Z00.00 - Encounter for general adult medical examination without abnormal findings Vitamin D 25-OH Total 1 Year E78.5 - Hyperlipidemia, unspecified, R73.9 - Hyperglycemia, unspecified, Z00.00 - Encounter for general adult medical examination without abnormal findings Hemoglobin A1c 1 Year E78.5 - Hyperlipidemia, unspecified, R73.9 - Hyperglycemia, unspecified, Z00.00 - Encounter for general adult medical examination without abnormal findings Referrals Cologuard Test Z12.11 - Encounter for screening for malignant neoplasm of colon, Z12.12 - Encounter for screening for malignant neoplasm of rectum Medications: New cholecalciferol (vitamin D3) 50 mcg PO DAILY 90 caps 3RF desoximetasone 0.25% 1 appl topical DAILY PRN 60 grams 0RF skin irritation Changed From rosuvastatin (Crestor) 10 mg PO DAILY 90 tabs 3RF To rosuvastatin 10 mg PO DAILY 90 tabs 3RF Discontinued ergocalciferol (vitamin D2) Discontinued Reason: Doctor's Order 1,250 mcg PO QWEEK 12 caps 3RF E55.9 - Vitamin D deficiency, unspecified Coding Level of Care Code Est Pt Prev Care >65y(22769) Diagnoses Hyperlipidemia E78.5 Annual physical exam Z00.00 Hyperglycemia R73.9
== END 2023-08-27 09:38 | disposition home or self-care (01) ==
PROVIDERS: PCP Internal Medicine; Visit Provider Internal Medicine
DX: E78.5 Hyperlipidemia, unspecified (principal); Z00.00 Encounter for general adult medical examination without abnormal findings; R73.9 Hyperglycemia, unspecified
CPT/HCPCS: 99397

== ENCOUNTER 2024-07-22 11:56 | Outpatient (AMB) | payer MEDICARE, SELFPAY ==
--- OUTSIDE RECORDS SUMMARY | 2024-07-22 12:27 | XMS_ITS | Clinical Summary ---
Author Organization [facility] Address [address] [place] [address] Care Team Providers Care Staff Midwife Name Role Phone Nirali Kruger MD Primary Care Provider [phone] Allergies Active Allergy Reactions Criticality Noted Date Comments Latex Rash/Dermatitis Low 12/19/2015 Medications Cholecalciferol (VITAMIN D PO) Take 1 tablet by mouth once a week. Active simvastatin (ZOCOR) 40 MG tablet Take 40 mg by mouth daily. Active ibuprofen (MOTRIN) 200 MG tablet Take 200 mg by mouth 4 times daily (every 6 hours) as needed for mild pain. 2 tabs Active Social History Tobacco Use Types Packs/Day Years Used Date Smoking Tobacco: Some Days Cigarettes Comments:1 pack/ week Alcohol Use Standard Drinks/Week Comments Yes 0 (1 standard drink = 0.6 oz pur e alcohol) rarely Comments Unknown Sex and Gender Information Value Date Recorded Sex Assigned at Not on file Legal Sex Female 12:45 PM EDT Gender Identity Not on file Sexual Orientation Not on file Last Filed Vital Signs Vital Sign Reading Time Taken Comments Blood Pressure 100/60 01/01/2016 3:55 PM EST Pulse 72 12/24/2015 3:40 PM EST Temperature 37.1 ??C (98.7 ??F) 12/24/2015 2:00 PM ES T Respiratory Rate 15 12/24/2015 3:15 PM EST Oxygen Saturation 97% 12/24/2015 3:15 PM EST Inhaled Oxygen Concentration - - Weight 86.2 kg (190 lb) 01/01/2016 3:55 PM EST Height 167.6 cm (5' 6 ) 01/01/2016 3:55 PM EST Body Mass Index 30.67 01/01/2016 3:55 PM EST Plan of Treatment Health Maintenance Due Date Last Done Comments Hepatitis C Virus Screening 1950 DTaP/Tdap/Td Vaccines (1 - Tdap) 1969 Mammogram 1990 Colonoscopy 06/29/1995 Pneumococcal Vaccines 50+ (1 of 1 - PCV) 2000 Zoster (Shingles) Vaccine (1 of 2) 2000 DXA Bone Density (Females,Ag es 65 and older) 06/29/2015 COVID-19 Vaccine (1 - 2023-2 5 season) 2023 Influenza Vaccine 09/16/2024 RSV Vaccine 60 years and old er and Patients (1 - 1-dose 75+ series) 2025 Hepatitis B Vaccines Aged Out No long er eligible based on patient's age to complete this topic Insurance R Advance Directives * Full Code (Latest Code Status on File) Date Activated Date Inactivated Comments 12/24/2015 5:44 AM 12/24/2015 6:49 PM Care Teams Staff Midwife Relationship Specialty Start Date End Date Nirali Kruger MD PCP - General 12/21/15
[2024-07-22 12:40] VITALS: BP 110/70; PULSE 71; RESP 15; TEMP 36.4; O2SAT 98; BMI 31.6
--- NOTE | 2024-07-22 12:40 | AM.OFFWIN_ITS ---
Intake Vital Signs 3 07/22/24 12:40 Height 5 ft 4 in Weight 184 lb BMI 31.6 BP 110/70 Blood Pressure Location Lt brachial Position Sitting Respiration 15 Pulse 71 Pulse Source Pulse Oximeter Temp 97.5 F Temp Source Oral Pulse Oximetry (%) 98 Oxygen Delivery Method Room Air Intake Visit Reasons: EP Rash on LT side of neck Intake Note: Pt is here tos c/o rash Lt side of neck noticed yesterday Patient Tobacco Use Status: Current everyday Tobacco user Allergies No Known Allergies Allergy (Verified 07/22/24 12:50) HPI HPI Comments 2 History of Present Illness0 Details Patient is a 74yo F who presents with rash to L side of neck Noticed last night Was outside and unsure if was bit +itching No pain, 0/10 She said she tried dexamethasone cream without relief 0/10 No rash elsewhere No SOB or ST No throat tightness PFSH Medical History Trochanteric bursitis of left hip Uterine prolapse GERD (gastroesophageal reflux disease) Ingrown toenail of both feet Right shoulder injury Vertigo Bursitis of right shoulder Bursitis of left shoulder High cholesterol Normal Pap smear Mammogram normal Vitamin D deficiency Hyperglycemia Annual physical exam Shoulder pain, bilateral Hyperlipidemia Surgical History H/O colonoscopy No pertinent past surgical history Family History Mother No problems noted. Father No problems noted. Social History Housing: House Alcohol intake: never Patient Tobacco Use Status: Current everyday Tobacco user Tobacco use type: Cigarette Cigarettes Per Day: 3 e-Cigarette/Vaping Use: Never Used service: No Current occupational status: retired Current occupation: right handed Cognitive needs: No Hearing needs: No Vision needs: Yes Female Reproductive History Menstrual Age of Menarche: 12 Review of Systems Const Denies chills and Denies fever(s) ENT Denies sore throat, Denies throat swelling and Denies tongue swelling Card Denies dyspnea Resp Denies dyspnea Skin/Breast Reports pruritus, Reports erythema, Reports rash and Reports skin swelling Aller/Immun Denies throat swelling and Denies tongue swelling Physical Exam Vital Signs: Last Vital Signs Temp 97.5 F 07/22/24 12:40 Pulse 71 07/22/24 12:40 Resp 15 07/22/24 12:40 BP 110/70 07/22/24 12:40 Pulse Ox 98 07/22/24 12:40 Oxygen Delivery Method Room Air 07/22/24 12:40 BMI result Body Mass Index 31.6 General: Non-toxic, NAD. Speaking full sentences. Skin: Warm dry throughout. See photo of L neck rash. + raised, non-tender patch of erythema. No vesicles or drainage. No rash elsewhere Eye: EOMI HENT: Airway patent. Uvula midline. No pharyngeal erythema or edema. 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 Respiratory: No respiratory distress or tachypnea Cardiac: Regular rate MSK: Full ROM extremities. Neurology: Alert. No aphasia or facial droop. Gait without abnormality Psych: Good mood and affect Assessment & Plan Assessment & Plan (1) Acute maculopapular rash: Code(s): R21 - Rash and other nonspecific skin eruption Plan: Keep area dry Wash with bland soap and water Use topical steroid as described; avoid eyes and mouth Slovenian interpretter used for interview and discharge instructions She gave verbal understanding and had no additional questions at time of discharge ER s/s discussed such as increased swelling, fever, throat tightness sob tongue edema etc Medications: New 2 triamcinolone acetonide 0.5% 1 appl topical BID 15 grams 1RF Coding Level of Care Code Est Pt Level 3 (84089) Diagnoses Acute maculopapular rash R21
== END 2024-07-22 13:12 | disposition home or self-care (01) ==
PROVIDERS: PCP Internal Medicine; Visit Provider Physician Assistant
DX: R21 Rash and other nonspecific skin eruption (principal)

== ENCOUNTER → 2024-07-22 11:56 | Outpatient (BNVA) | payer MEDICARE, SELFPAY | PROVIDERS: PCP Internal Medicine; Visit Provider Physician Assistant | DX: R21 Rash and other nonspecific skin eruption (principal) | CPT/HCPCS: 99212 ==

== ENCOUNTER 2024-09-15 07:37 | Outpatient (AMB) | payer MEDICARE, SELFPAY ==
--- OUTSIDE RECORDS SUMMARY | 2024-09-15 07:39 | XMS_ITS | Clinical Summary ---
Author Organization [facility] Address [address] [place] [address] Care Team Providers Care Truck Rental Service Attendant Name Role Phone Karly Pineda MD Primary Care Provider [phone] Surgical History Surgery Date Site/Laterality Comments OTHER SURGICAL HISTORY PROCEDURE: FL LIGJ DIVJ & STRIPPING SHORT SAPHENOUS VEIN OTHER SURGICAL HISTORY 06/06/2020 Left PROCEDURE: [place] EXCISION NAIL MATRIX PERMANENT REMOVAL; COMMENT: Dr. Dai OTHER SURGICAL HISTORY Right PROCEDURE: FL EXCISION NAIL MATRIX PERMANENT REMOVAL; COMMENT: Right hallux medial and lateral borders and fourth toe lateral border by Dr. Dai Medical History Medical History Date Comments Hyperlipidemia DX:Hyperlipidemi a Ingrown toenail of both feet DX: Ingrown toenail of both feet Family History Medical History Relation Name Comments Breast cancer Neg Hx Social History Tobacco Use Types Packs/Day Years Used Date Smoking Tobacco: Every Day Cigarettes Smokeless Tobacco: Former Alcohol Use Standard Drinks/Week Comments No 0 (1 standard drink = 0.6 oz pur e alcohol) Comments Unknown Sex and Gender Information Value Date Recorded Sex Assigned at Not on file Legal Sex Female 9:37 PM EST Gender Identity Not on file Sexual Orientation Not on file Obstetrics History Plan of Treatment Upcoming Encounters Date Type Department Care Team (Late st Contact Info) Description 11/17/2024 4:00 PM EDT Appointment Radiology Department - [address] [phone] Health Maintenance Due Date Last Done Comments DTaP,Tdap,and Td Vaccines (1 - Tdap) 1969 Pneumococcal Vaccine: 50+ Years (1 of 2 - PCV) 1969 Zoster Vaccines (1 of 2) 2000 Cholesterol Screening (Lipid Panel) 01/25/2022 Colorectal Cancer Screening: Colonoscopy 01/25/2022 Falls Risk Assessment 01/25/2022 Hepatitis C Screening 01/25/2022 Medicare Annual Wellness Visit 01/25/2022 Osteoporosis Screening (Bone Density Screening) 01/25/2022 Social Influencers of Health Screening 01/25/2022 COVID-19 Vaccine ( - 2023- season) 2023 Depression Screening 02/17/2024 Influenza Vaccine (#1) 2024 RSV Immunization Adult Patients (1 - 1-dose 75+ series) 2025 Breast Cancer Screening 11/08/2025 11/09/19 24, 11/09/2023, 11/03/2022, Additional history exists HIB Vaccines Aged Out No longer eligi ble based on patient's age to complete this topic HPV Vaccines Aged Out No longer eligi ble based on patient's age to complete this topic Hepatitis A Vaccines Aged Out No long er eligible based on patient's age to complete this topic Hepatitis B Vaccines Aged Out No long er eligible based on patient's age to complete this topic IPV Vaccines Aged Out No longer eligi ble based on patient's age to complete this topic MMR Vaccines Aged Out No longer eligi ble based on patient's age to complete this topic Meningococcal ACWY Vaccine Aged Out N o longer eligible based on patient's age to complete this topic Meningococcal B Vaccine Aged Out No l onger eligible based on patient's age to complete this topic RSV Immunization Patients Under 20 months Aged Out No longer eligible based on patient's age to complete this topic Varicella Vaccines Aged Out No longer eligible based on patient's age to complete this topic Procedures Procedure Name Priority Date/Time Associated Diagnosis Comments SCREENING MAMMOGRAPHY BI 2-VIEW BREAST INC CAD Routine 11/09/2023 2:26 PM EDT Encounter for screening mammogram for malignant neoplasm of breast from Last 3 Months or Most Recently Relevant to Health Maintenance Results * SCREENING MAMMOGRAPHY BI 2-VIEW BREAST INC CAD (11/09/2023 2:26 PM EDT) Anatomical Region Laterality Modality Radiographic Karen ging 11/03/2022 1:33 PM EDT Narrative 11/09/2023 7:06 PM EDT This is a summary report. The complete report is available in the patient's medical record. If you cannot access the medical record, please contact the sending organization for a detailed fax or copy. Full field digital screening tomosynthesis mammography, reviewed with CAD and compared to previous. The breasts are composed of fatty and fibroglandular tissue. No suspicious mass, architectural distortion or suspicious calcifications are identified. IMPRESSION: : No mammographic evidence of malignancy. BIRADS 1-Negative; N. Breast density: The breasts have scattered areas of fibroglandular density. 5 year breast cancer risk assessment 1.3 % Lifetime breast cancer risk assessment 3.1 % Breast cancer risk category Low (<15%) Location: [facility], [address] [place] [address], [id number], [phone] Procedure Note Farida Pena MD - 01/11/2024 This is a summary report. The complete report is available in thepatient's medical record. If you cannot access the medical record, pleasecontact the sending organization for a detailed fax or copy. Full field digital screening tomosynthesis mammography, reviewed with CADand compared to previous. The breasts are composed of fatty andfibroglandular tissue. No suspicious mass, architectural distortion orsuspicious calcifications are identified. IMPRESSION: : No mammographic evidence of malignancy. BIRADS 1-Negative; N. Breast density: The breasts have scattered areas of fibroglandulardensity. 5 year breast cancer risk assessment 1.3 % Lifetime breast cancer risk assessment 3.1 % Breast cancer risk category Low (<15%) Location: [facility], [address] [place] [address], [phone], [phone] us Karly Pineda MD IMG XR PROCEDURES Final Resul t from Last 3 Months or Most Recently Relevant to Health Maintenance Insurance [employer] Care Teams Truck Rental Service Attendant Relationship Specialty Start Date End Date Karly Pineda MD PCP - General Internal Medicine 10/20/19
--- OUTSIDE RECORDS SUMMARY | 2024-09-15 07:39 | XMS_ITS | Clinical Summary ---
Author Organization [facility] Address [address] [place] [address] Care Team Providers Care Associate Dean Of Students Name Role Phone iNrali Kruger MD Primary Care Provider [phone] Allergies Active Allergy Reactions Criticality Noted Date [...] 72 12/24/2015 3:40 PM EST Temperature 37.1 C (98.7 F) 12/24/2015 2:00 PM EST Respiratory Rate 15 12/24/2015 3:15 PM EST [...] 5:44 AM 12/24/2015 6:49 PM Care Teams Associate Dean Of Students Relationship Specialty Start Date End Date Nirali Kruger MD PCP - General 12/21/15
[2024-09-15 08:01] VITALS: BP 112/68; PULSE 74; RESP 18; TEMP 36.7; O2SAT 98; BMI 32.3
--- NOTE | 2024-09-15 08:01 | MHC.PC.OV ---
Vital Signs 09/15/24 08:01 Height 5 ft 4 in Weight 188 lb BMI 32.3 BP 112/68 Blood Pressure Location Lt brachial Position Sitting Respiration 18 Pulse 74 Pulse Source Pulse Oximeter Temp 98.0 F Temp Source Oral Pulse Oximetry (%) 98 Oxygen Delivery Method Room Air Intake Visit Reasons: Annual PE Intake Note: Pt is here today for PE. Allergies No Known Allergies Allergy (Verified 09/15/24 08:01) Medication List - Last Reconciled 09/15/24 by Karly Pineda MD cholecalciferol (vitamin D3) 50 mcg PO DAILY desoximetasone 0.25% 1 appl topical DAILY PRN rosuvastatin 10 mg PO DAILY triamcinolone acetonide 0.5% 1 appl topical BID Tobacco use date assessed: 09/15/24 Fall risk assessment: No Falls in past year Last assessed Fall Risk: 09/15/24 Dental Screening Dental Screen Date: 09/15/24 Did you have a dental visit in the last 12 months?: No Did you have a dental problem in the last 6 months where you did not have access to dental care?: No Was dental information given to patient?: Patient declined HPI Annual PE HPI Details Patient presents for physical [facility] Medical History Trochanteric bursitis of left hip Uterine prolapse GERD (gastroesophageal reflux disease) Ingrown toenail of both feet Right shoulder injury Vertigo Bursitis of right shoulder Bursitis of left shoulder High cholesterol Normal Pap smear Mammogram normal Vitamin D deficiency Hyperglycemia Annual physical exam Shoulder pain, bilateral Hyperlipidemia Surgical History H/O colonoscopy No pertinent past surgical history Family History Mother No problems noted. Father No problems noted. Social History Housing: House Alcohol intake: never Patient Tobacco Use Status: Current everyday Tobacco user Tobacco use type: Cigarette Cigarettes Per Day: 3 e-Cigarette/Vaping Use: Never Used service: No Current occupational status: retired Current occupation: right handed Cognitive needs: No Hearing needs: No Vision needs: Yes Female Reproductive History Menstrual Age of Menarche: 12 Questionnaire PHQ-9 Over the last 2 weeks, how often have you been bothered by any of the following problems? 1. Little interest or pleasure in doing things: not at all 2. Feeling down, depressed, or hopeless: not at all 3. Trouble falling or staying asleep, or sleeping too much: not at all 4. Feeling tired or having little energy: not at all 5. Poor appetite or overeating: not at all 6. Feeling bad about yourself - or that you are a failure or have let yourself or your family down: not at all 7. Trouble concentrating on things, such as reading the newspaper or watching television: not at all 8. Moving or speaking so slowly that other people could have noticed. Or the opposite - being so fidgety or restless that you have been moving around a lot more than usual: not at all 9. Thoughts that you would be better off or of hurting yourself in some way: not at all Total score: 0 Depression Screening Interpretation: Negative Depression Screening Done: Yes 67556 - PHQ-9 Billing: Yes Source: Developed by Drs. Bruno Arrington, Nae Mejia, Shakeel Penny and colleagues, with an educational bolivar from [employer]. Thrive Questionnaire Date Thrive assessed: 09/15/24 I am a: Patient What is your living situation today?: I have a steady place to live Within the past 12 months, did the food you bought not last and you didn't have the money to get more?: Never true Within the past 12 months, did you worry whether your food would run out before you got money to buy more?: Never true Do you have trouble paying for medicines?: No Do you have trouble getting transportation to medical appointments?: No Do you have trouble paying your heating and electricity bill?: No Do you have trouble taking care of your child, family member or friend?: No Do you have trouble with day-to-day activities such as bathing, preparing meals, shopping, managing finances, etc.?: No Are you currently unemployed and looking for a job?: No Are you interested in more education?: No Please select the resources that you would like help with: None THRIVE Score: 0 AUDIT C Alcohol Use Questionnaire (AUDIT-C) 1. How often do you have a drink containing alcohol?: Never 3. How often do you have six or more drinks on one occasion?: Never Total Score: 0 POLO-7 AMB Questionnaire POLO-7 Date POLO - 7 assessed: 09/15/24 Feeling nervous, anxious, or on edge: 0 = Not at all Not being able to stop or control worryin = Not at all Worrying too much about different things: 0 = Not at all Trouble relaxin = Not at all Being so restless that it is hard to sit still: 0 = Not at all Becoming easily annoyed or irritable: 0 = Not at all Feeling afraid as if something awful might happen: 0 = Not at all Total POLO-7 score (0-4 normal; 5-9 mild; 10-14 moderate; 15-21 severe): 0 Source: Developed by Drs. Bruno Arrington, Nae Mejia, Shakeel Penny and colleagues, with an educational bolivar from [employer]. POLO-7 Assessment Billing POLO-7 Assessment Tool: POLO-7 Assessment 46954 Review of Systems Const All systems reviewed & are unremarkable except as noted in HPI and below Eyes Reports no additional complaints ENT Reports no additional complaints Card Reports no additional complaints Resp Reports no additional complaints GI Reports no additional complaints Reports no additional complaints Physical exam (Primary Care) Vital Signs: Last Vital Signs Temp 98.0 F 09/15/24 08:01 Pulse 74 09/15/24 08:01 Resp 18 09/15/24 08:01 BP 112/68 09/15/24 08:01 Pulse Ox 98 09/15/24 08:01 Oxygen Delivery Method Room Air 09/15/24 08:01 BMI result Body Mass Index 32.3 Tobacco/Smoking Status: Tobacco use Status Tobacco use date assessed 09/15/24 09/15/24 08:08 Patient Tobacco Use Status Current everyday Tobacco 09/15/24 08:08 Tobacco use type Cigarette 09/15/24 08:08 e-Cigarette/Vaping Use Never Used 09/15/24 08:08 PHQ-9: PHQ-9 Score PHQ-9: Total score 0 09/15/24 08:08 Depression Screening Interpretation: Negative Thrive Assessment: Date of Thrive Assessment Date Thrive assessed 09/15/24 09/15/24 08:08 Const General: no acute distress HENMT Head: Yes normal to inspection Face and sinus: Yes normal facial exam Throat: Yes posterior oropharynx normal Eyes General: appearance normal, both eyes and all related structures Neck Neck: Yes no lymphadenopathy and Yes supple Resp Effort & Inspection: normal respiratory effort Auscultation: clear to auscultation bilaterally Cardio Rhythm: regular rhythm Heart sounds: S1 normal heart sound present and S2 normal heart sound present GI Inspection: Yes normal to inspection Palpation (GI): Soft to palpation Percussion: Yes normal to percussion Auscultation: normal bowel sounds Coding Level of Care Code Est Pt Prev Care >65y(83337) Diagnoses Postmenopausal Z78.0 Hyperlipidemia E78.5 Hyperglycemia R73.9 Vitamin D deficiency E55.9 Annual physical exam Z00.00 Additional Codes POLO-7 Assessment Billing - POLO-7 Assessment Tool: POLO-7 Assessment 56619 ([id number]) PHQ-9 - 53053 - PHQ-9 Billing: Yes ([id number]) Assessment & Plan Assessment & Plan (1) Postmenopausal: Code(s): Z78.0 - Asymptomatic menopausal state Category: Medical Plan: Patient will schedule DEXA (2) Hyperlipidemia: Code(s): E78.5 - Hyperlipidemia, unspecified Category: Medical Plan: Continue statin (3) Hyperglycemia: Code(s): R73.9 - Hyperglycemia, unspecified Category: Medical Plan: Check A1c, ADA diet regular physical activity weight loss discussed with the patient follow-up in 1 year with a fasting labs before (4) Vitamin D deficiency: Code(s): E55.9 - Vitamin D deficiency, unspecified Category: Medical Plan: Continue vitamin-D supplement (5) Annual physical exam: Code(s): Z00.00 - Encounter for general adult medical examination without abnormal findings Category: Medical Plan: Well-balanced diet regular physical activity weight loss discussed. She is up-to-date with the mammogram. Patient declined colonoscopy and Pneumovax Orders: Orders XR DEXA axial skeleton Today Z78.0 - Asymptomatic menopausal state Hemoglobin A1c 1 Year E55.9 - Vitamin D deficiency, unspecified, E78.5 - Hyperlipidemia, unspecified, R73.9 - Hyperglycemia, unspecified, Z00.00 - Encounter for general adult medical examination without abnormal findings Lipid Panel 1 Year E55.9 - Vitamin D deficiency, unspecified, E78.5 - Hyperlipidemia, unspecified, R73.9 - Hyperglycemia, unspecified, Z00.00 - Encounter for general adult medical examination without abnormal findings Vitamin D 25-OH Total 1 Year E55.9 - Vitamin D deficiency, unspecified, E78.5 - Hyperlipidemia, unspecified, R73.9 - Hyperglycemia, unspecified, Z00.00 - Encounter for general adult medical examination without abnormal findings Comprehensive Forman. Panel Fast 1 Year E55.9 - Vitamin D deficiency, unspecified, E78.5 - Hyperlipidemia, unspecified, R73.9 - Hyperglycemia, unspecified, Z00.00 - Encounter for general adult medical examination without abnormal findings Complete Blood Count Auto Diff 1 Year E55.9 - Vitamin D deficiency, unspecified, E78.5 - Hyperlipidemia, unspecified, R73.9 - Hyperglycemia, unspecified, Z00.00 - Encounter for general adult medical examination without abnormal findings TSH reflex Free T4 1 Year E55.9 - Vitamin D deficiency, unspecified, E78.5 - Hyperlipidemia, unspecified, R73.9 - Hyperglycemia, unspecified, Z00.00 - Encounter for general adult medical examination without abnormal findings Medications: Refilled rosuvastatin 10 mg PO DAILY 90 tabs 3RF desoximetasone 0.25% 1 appl topical DAILY PRN 60 grams 0RF skin irritation cholecalciferol (vitamin D3) 50 mcg PO DAILY 90 caps 3RF
== END 2024-09-15 08:51 | disposition home or self-care (01) ==
LOC: HO.HMCC 07:38
PROVIDERS: PCP Internal Medicine; Visit Provider Internal Medicine
DX: Z78.0 Asymptomatic menopausal state (principal); E78.5 Hyperlipidemia, unspecified; R73.9 Hyperglycemia, unspecified; E55.9 Vitamin D deficiency, unspecified; Z00.00 Encounter for general adult medical examination without abnormal findings

== ENCOUNTER 2024-09-15 07:37 | Outpatient (REF) | payer MEDICARE, SELFPAY ==
[2024-09-15 13:12] LABS: MANUAL DIFF FLAG NO
[2024-09-15 13:21] LABS: Hematocrit 44.8 % (37.0-47.0); Hemoglobin 14.5 g/dl (12.0-16.0); Imm Gran Abs Auto 0.01 X10*3/uL (0.00-0.03); Imm Gran Pct Auto 0.2 % (0.0-0.4); Lymphocytes Absolute Auto 2.2 X10*3/uL (1.2-4.9); Mean Corpuscular HGB Conc 32.4 g/dl (31.0-35.0); Mean Corpuscular Hemoglobin 30.2 pg (27.0-33.0); Mean Corpuscular Volume 93.3 fL (80.0-98.0); NRBC Abs Auto 0.000 X10*3/uL (0.0-0.012); NRBC Pct Auto 0.0 /100WBC (0.0-0.2); Platelet Count 149 X10*3/uL (160-400); Red Blood Count 4.80 X10*6/uL (4.20-5.50); White Blood Count 5.3 X10*3/uL (4.8-10.8)
[2024-09-15 13:48] LABS: Hemoglobin A1C 162.8579 umol/L; Total Hemoglobin (HGBA1C) 3841.6861 umol/L
[2024-09-15 13:57] LABS: Microalbum/Creatinine Ratio Ur 6.1 ug/mg cr (<30)
[2024-09-15 14:00] LABS: Alanine Aminotransferase 19 U/L (0-31); Albumin Level 4.3 g/dL (3.5-5.0); Alkaline Phosphatase 74 U/L (39-117); Anion Gap 12 (12-20); Aspartate Amino Transferase 22 U/L (5-31); Blood Urea Nitrogen 12 mg/dL (9-16); Calcium 9.1 mg/dL (8.4-10.2); Carbon Dioxide 28 mmol/L (22-29); Chloride 108 mmol/L (96-108); Cholesterol 161 mg/dL (<200); Estimated Glomerular Filt Rate > 60; HDL Cholesterol 51 mg/dL (>40); Potassium 4.6 mmol/L (3.3-5.1); Sodium 143 mmol/L (135-145); Total Protein 6.6 g/dL (6.5-8.0); Triglycerides 142 mg/dL (<150)
== END 2024-09-15 07:38 | disposition home or self-care (01) ==
LOC: HO.HMGCLDS 07:37
PROVIDERS: PCP Internal Medicine; Visit Provider Internal Medicine
DX: Z00.00 Encounter for general adult medical examination without abnormal findings (principal); E78.5 Hyperlipidemia, unspecified; R73.9 Hyperglycemia, unspecified; E55.9 Vitamin D deficiency, unspecified; Z79.899 Other long term (current) drug therapy; Z78.0 Asymptomatic menopausal state; Z13.31 Encounter for screening for depression; Z13.39 Encounter for screening examination for other mental health and behavioral disorders
CPT/HCPCS: 36415; 80053; 80061; 82043; 82306; 82570; 83036; 85025; 96127; 99397

== ENCOUNTER 2025-01-24 11:39 | Outpatient (AMB) | payer MEDICARE, SELFPAY ==
[2025-01-24 11:41] VITALS: BP 120/76; PULSE 95; RESP 17; TEMP 36.6; O2SAT 97; BMI 30.9
--- NOTE | 2025-01-24 11:41 | A.OFFPC_ITS ---
Vital Signs 01/24/25 11:41 Height 5 ft 4 in Weight 180 lb BMI 30.9 BP 120/76 Blood Pressure Location Lt brachial Position Sitting Respiration 17 Pulse 95 Pulse Source Pulse Oximeter Temp 97.9 F Temp Source Oral Pulse Oximetry (%) 97 Oxygen Delivery Method Room Air Intake Visit Reasons: shoulder pain Intake Note: Pt is here today for a sick visit. Allergies No Known Allergies Allergy (Verified 01/24/25 11:47) Tobacco use date assessed: 09/15/24 Fall risk assessment: No Falls in past year Last assessed Fall Risk: 01/24/25 Dental Screening Dental Screen Date: 09/15/24 HPI shoulder pain HPI Details Patient presents complaining of bilateral shoulder pain stiffness worse when trying to reach overhead worse in the morning lasting a few hours improving over time with the movement for 2 months. Patient reports bilateral lower back pain radiating to both buttocks but no lower extremities for the last month. She tried meloxicam with only temporary relief. Patient denies joint swelling p rolonged morning stiffness in both hands ,rash, fever chills, history of tick bites. Patient has been taking rosuvastatin daily [facility] Medical History (Updated 01/24/25 @ 12:08 by Karly Pineda MD) Arthralgia Trochanteric bursitis of left hip Uterine prolapse GERD (gastroesophageal reflux disease) Ingrown toenail of both feet Right shoulder injury Vertigo Bursitis of right shoulder Bursitis of left shoulder High cholesterol Normal Pap smear Mammogram normal Vitamin D deficiency Hyperglycemia Annual physical exam Shoulder pain, bilateral Hyperlipidemia Surgical History H/O colonoscopy No pertinent past surgical history Family History Mother No problems noted. Father No problems noted. Social History Housing: House Alcohol intake: never Patient Tobacco Use Status: Current everyday Tobacco user Tobacco use type: Cigarette Cigarettes Per Day: 3 e-Cigarette/Vaping Use: Never Used service: No Current occupational status: retired Current occupation: right handed Cognitive needs: No Hearing needs: No Vision needs: Yes Female Reproductive History Menstrual Age of Menarche: 12 Questionnaire Thrive Questionnaire Date Thrive assessed: 09/15/24 POLO-7 AMB Questionnaire POLO-7 Date POLO - 7 assessed: 09/15/24 Source: Developed by Drs. Bruno Arrington, Nae Mejia, Shakeel Penny and colleagues, with an educational bolivar from [employer]. Review of Systems Const All systems reviewed & are unremarkable except as noted in HPI and below Eyes Reports no additional complaints ENT Reports no additional complaints Card Reports no additional complaints Resp Reports no additional complaints GI Reports no additional complaints Reports no additional complaints Physical exam (Primary Care) Vital Signs: Last Vital Signs Temp 97.9 F 01/24/25 11:41 Pulse 95 01/24/25 11:41 Resp 17 01/24/25 11:41 BP 120/76 01/24/25 11:41 Pulse Ox 97 01/24/25 11:41 Oxygen Delivery Method Room Air 01/24/25 11:41 BMI result Body Mass Index 30.9 Tobacco/Smoking Status: Tobacco use Status Tobacco use date assessed 09/15/24 01/24/25 11:42 Patient Tobacco Use Status Current everyday Tobacco 01/24/25 11:42 Tobacco use type Cigarette 01/24/25 11:42 e-Cigarette/Vaping Use Never Used 01/24/25 11:42 Thrive Assessment: Date of Thrive Assessment Date Thrive assessed 09/15/24 01/24/25 11:42 Const General: no acute distress HENMT Head: Yes normal to inspection Face and sinus: Yes normal facial exam Eyes General: appearance normal, both eyes and all related structures Neck Neck: Yes supple Resp Effort & Inspection: normal respiratory effort Auscultation: clear to auscultation bilaterally Cardio Rhythm: regular rhythm Heart sounds: S1 normal heart sound present and S2 normal heart sound present GI Inspection: Yes normal to inspection Palpation (GI): Soft to palpation Extrem Other: There is significant decreased range of motion in both shoulders and knees. There is no joint all large muscle groups tenderness, joint erythema or warmth General: Yes no clubbing, cyanosis or edema Coding Level of Care Code Est Pt Level 3 (25707) Diagnoses Arthralgia M25.50 Assessment & Plan Assessment & Plan (1) Arthralgia: Code(s): M25.50 - Pain in unspecified joint Category: Medical Plan: Patient was advised to stop rosuvastatin and arthritis panel including sed rate will be obtained. Orders: Orders Erythrocyte Sedimentation Rate Today M25.50 - Pain in unspecified joint Creatine Kinase Total Today M25.50 - Pain in unspecified joint Lyme IgG/IgM w/reflex to WB Today M25.50 - Pain in unspecified joint PASQUALE Reflex Titer and Pattern Today M25.50 - Pain in unspecified joint C Reactive Protein Today M25.50 - Pain in unspecified joint Comprehensive Met. Panel Today M25.50 - Pain in unspecified joint Complete Blood Count Auto Diff Today M25.50 - Pain in unspecified joint Rheumatoid Factor Today M25.50 - Pain in unspecified joint
== END 2025-01-24 12:24 | disposition home or self-care (01) ==
LOC: HO.HMCC 11:40
PROVIDERS: PCP Internal Medicine; Visit Provider Internal Medicine
DX: M25.50 Pain in unspecified joint (principal)

== ENCOUNTER 2025-01-24 11:39 | Outpatient (REF) | payer MEDICARE, SELFPAY ==
[2025-01-24 16:13] LABS: MANUAL DIFF FLAG NO
[2025-01-24 16:30] LABS: Hematocrit 44.8 % (37.0-47.0); Hemoglobin 14.1 g/dl (12.0-16.0); Imm Gran Abs Auto 0.02 X10*3/uL (0.00-0.03); Imm Gran Pct Auto 0.3 % (0.0-0.4); Lymphocytes Absolute Auto 1.7 X10*3/uL (1.2-4.9); Mean Corpuscular HGB Conc 31.5 g/dl (31.0-35.0); Mean Corpuscular Hemoglobin 29.3 pg (27.0-33.0); Mean Corpuscular Volume 93.1 fL (80.0-98.0); NRBC Abs Auto 0.000 X10*3/uL (0.0-0.012); NRBC Pct Auto 0.0 /100WBC (0.0-0.2); Platelet Count 165 X10*3/uL (160-400); Red Blood Count 4.81 X10*6/uL (4.20-5.50); White Blood Count 6.0 X10*3/uL (4.8-10.8)
[2025-01-24 16:54] LABS: Alanine Aminotransferase 21 U/L (0-31); Albumin Level 4.4 g/dL (3.5-5.0); Alkaline Phosphatase 80 U/L (39-117); Anion Gap 12 (12-20); Aspartate Amino Transferase 20 U/L (5-31); Blood Urea Nitrogen 16 mg/dL (9-16); Calcium 9.7 mg/dL (8.4-10.2); Carbon Dioxide 28 mmol/L (22-29); Chloride 109 mmol/L (96-108); Estimated Glomerular Filt Rate > 60; Potassium 4.1 mmol/L (3.3-5.1); Sodium 145 mmol/L (135-145); Total Protein 6.9 g/dL (6.5-8.0)
[2025-01-24 18:17] LABS: Erythrocyte Sedimentation Rate 13 MM/HR (0-20)
[2025-01-25 06:43] LABS: Lyme Abs Screen <0.90 index
[2025-01-25 11:54] LABS: Anti Nuclear Antibody Screen NEGATIVE (NEGATIVE)
== END 2025-01-24 11:40 | disposition home or self-care (01) ==
LOC: HO.HMGCLDS 11:39
PROVIDERS: PCP Internal Medicine; Visit Provider Internal Medicine
DX: M25.50 Pain in unspecified joint (principal)
CPT/HCPCS: 36415; 80053; 82550; 85025; 85652; 86038; 86431; 86617; 86618; 99212

== ENCOUNTER 2025-02-02 13:06 | Outpatient (REF) | payer MEDICARE, SELFPAY ==
--- OUTSIDE RECORDS SUMMARY | 2025-02-02 13:42 | XMS_ITS | Encounter Summary ---
Author Organization [facility] Address [address] [place] [address] Care Team Providers Care Deputy Prosecuting Attorney Name Role Phone Karly Pineda MD Primary Care Provider [phone] Reason for Referral * Imaging (Routine) - Authorized Specialty Diagnoses / Procedures Referred By Contac t Referred To Contact Radiology Diagnoses Asymptomatic menopausal state Procedures BD Bone Density DXA Axial Skeleton Karly Pineda MD [address] [place], [place] Phone: tel: fax: [address] Phone: tel: Referral ID Status Reason Start Date Expiration Date V isits Requested Visits Authorized [id number] Authorized 10/11/2024 10/11/2025 1 1 Reason for Visit * Imaging (Routine) - Authorized Specialty Diagnoses / Procedures Referred By Contac t Referred To Contact Radiology Diagnoses Asymptomatic menopausal state Procedures BD Bone Density DXA Axial Skeleton Karly Pineda MD [address] [place], [place] Phone: tel: fax: [address] Phone: tel: Referral ID Status Reason Start Date Expiration Date V isits Requested Visits Authorized [id number] Authorized 10/11/2024 10/11/2025 1 1 Encounter Details Date Type Department Care Team (Latest Contact Info) Description 02/02/2025 1:42 PM EST Hospital Encounter Bone Density - [place] [address] [place] [address] Asymptomatic menopausal state Social History Tobacco Use Types Packs/Day Years Used Date Smoking Tobacco: Every Day Cigarettes Smokeless Tobacco: Former Alcohol Use Standard Drinks/Week Comments No 0 (1 standard drink = 0.6 oz pur e alcohol) Comments No Sex and Gender Information Value Date Recorded Sex Assigned at Not on file Legal Sex Female 9:37 PM EST Gender Identity Not on file Sexual Orientation Not on file documented as of this encounter Plan of Treatment Pending Results Name Type Priority Associated Diagnoses Date /Time BD Bone Density DXA Axial Skeleton Imaging Routine Asymptomatic menopausal state 02/02/2025 2:23 PM EST Scheduled Orders Name Type Priority Associated Diagnoses Orde r Schedule BD Bone Density DXA Axial Skeleton Imaging Routine Asymptomatic menopausal state Once for 1 Occurrences starting 02/02/2025 until 02/02/2025 documented as of this encounter Visit Diagnoses Diagnosis Asymptomatic menopausal state documented in this encounter Care Teams Deputy Prosecuting Attorney Relationship Specialty Start Date End Date Karly Pineda MD [address] [place] [address] PCP - General Internal Medicine 10/20/19 documented as of this encounter
--- OUTSIDE RECORDS SUMMARY | 2025-02-02 17:04 | XMS_ITS | Clinical Summary ---
Author Organization [facility] Address [address] [place] [address] Care Team Providers Care Chute Operator Name Role Phone Nirali Kruger MD Primary Care Provider [phone] Allergies Active Allergy Reactions Criticality Noted Date [...] Health Maintenance Due Date Last Done Comments Advance Care Planning 1950 Hepatitis C Virus Screening 1950 DTaP/Tdap/Td Vaccines (1 - Tdap) 1969 Mammogram 1990 Colonoscopy 06/29/1995 Pneumococcal Vaccines 50+ (1 of 1 - PCV) 2000 Zoster (Shingles) Vaccine (1 of 2) 2000 DXA Bone Density (Females,Ag es 65 and older) 06/29/2015 Influenza Vaccine 09/16/2024 COVID-19 Vaccine (1 - 2024-2 6 season) 2024 RSV Vaccine 50 years and old er and Patients (1 - 1-dose 75+ series) 2025 Hepatitis B Vaccines Aged Out No long er eligible based on patient's age to complete this topic Insurance [facility] Advance Directives * Full Code (Latest Code Status on File) Date Activated Date Inactivated Comments 12/24/2015 5:44 AM 12/24/2015 6:49 PM Care Teams Chute Operator Relationship Specialty Start Date End Date Nirali Kruger MD PCP - General 12/21/15
--- OUTSIDE RECORDS SUMMARY | 2025-02-02 17:04 | XMS_ITS | Clinical Summary ---
Author Organization [facility] [address] [place] [address] [place] [address] Phone Care Team Providers Care Laborer/Grade Check Name Role Phone Karly Pineda MD Primary Care Provider [phone] Encounters Date Type Department Care Team Description 02/02/2025 1:42 PM EST Hospital Encounter Bone Density - [address] [phone] Asymptomatic menopausal state 11/17/2024 3:26 PM EDT - 11/17/2024 11:59 PM EDT Hospital Encounter Radiology Department - [address] [phone] Encounter for screening mammogram for breast cancer Discharge Disposition: Home or Self Care from Last 3 Months Surgical History Surgery Date Site/Laterality Comments OTHER SURGICAL HISTORY PROCEDURE: IN LIGJ DIVJ & STRIPPING SHORT SAPHENOUS VEIN OTHER SURGICAL HISTORY 06/06/2020 Left PROCEDURE: IN EXCISION NAIL MATRIX PERMANENT REMOVAL; COMMENT: Dr. Dai OTHER SURGICAL HISTORY Right PROCEDURE: IN EXCISION NAIL MATRIX PERMANENT REMOVAL; COMMENT: Right [...] Sexual Orientation Not on file Obstetrics History Para Term AB IAB SAB Ectopic Multiple Livin g Live Births 2 2 2 2 Date Outcome GA Total Labor Labor/2nd/3rd Weight Sex Type Anes PTL Jenn A1 A5 Name Clin Term Term Plan of Treatment Health Maintenance Due Date Last Done Comments DTaP,Tdap,and Td Vaccines (1 - Tdap) 1969 Pneumococcal Vaccine: 50+ Years (1 of 2 - PCV) 1969 Zoster Vaccines (1 of 2) 2000 Cholesterol Screening (Lipid Panel) 01/25/2022 Falls Risk Assessment 01/25/2022 Hepatitis C Screening 01/25/2022 Medicare Annual Wellness Visit 01/25/2022 Osteoporosis Screening (Bone Density Screening) 01/25/2022 Social Influencers of Health Screening 01/25/2022 Depression Screening 02/17/2024 COVID-19 Vaccine ( season) 2024 11/27/2020, 05/05/2020, 04/14/2020 Influenza Vaccine (#1) 2024 Colorectal Cancer Screening: FIT-DNA (Cologuard) 03/11/2025 03/11/2022, 03/11/2022 RSV Immunization Adult Patients (1 - 1-dose 75+ series) 2025 Breast Cancer Screening 11/17/2026 11/18/19, 11/09/2023, 11/09/2023, Additional history exists HIB Vaccines Aged Out [...] Procedure Name Priority Date/Time Associated Diagnosis Comments MG MAMMO DIGITAL SCREENING W ROSALIO BILAT Routine 11/17/2024 3:43 PM EDT Encounter for screening mammogram for breast cancer from Last 3 Months Results * MG Mammo Digital Screening w Rosalio bilat (11/17/2024 3:43 PM EDT) Anatomical Region Laterality Modality Breast Bilateral Mammography 11/21/2024 10:3 6 AM EDT Impressions 11/21/2024 10:45 AM EDT No mammographic evidence of malignancy. BI-RADS CATEGORY: 1 - NEGATIVE RECOMMENDATION: Screening bilateral mammogram is recommended in 1 year. Mammo Location: [facility], [address] [place] [address], [id number], . -------- FINAL REPORT -------- Dictated By: Farida Pena Dictated Date: 11/21/2024 10:36 ET Assigned Physician: Farida Pena Reviewed and Electronically Signed By: Farida Pena Signed Date: 11/21/2024 10:45 ET Workstation ID: [id number] Transcribed By: Self Edit Transcribed Date: 11/21/2024 10:36 ET Narrative 11/21/2024 10:45 AM EDT Bilateral screening mammogram. CLINICAL: 74 years old, Female, routine annual exam. COMPARISON: Prior mammograms, latest from 11/09/2023. TECHNIQUE: Bilateral MLO and CC views were obtained digitally with 2 D C views and 3-D mammogram (digital breast tomosynthesis). Computer-aided detection was utilized in evaluation of this exam (CAD). FINDINGS: There is no evidence of suspicious mass or architectural distortion. No worrisome calcifications are evident. There has been no significant change from prior exam(s). BREAST DENSITY: B - There are scattered areas of fibroglandular density. Procedure Note Farida Pena MD - 11/21/2024 Bilateral screening mammogram. CLINICAL: 74 years old, Female, routine annual exam. COMPARISON: Prior mammograms, latest from 11/09/2023. TECHNIQUE: Bilateral MLO and CC views were obtained digitally with 2 D Cviews and 3-D mammogram (digital breast tomosynthesis). Computer-aideddetection was utilized in evaluation of this exam (CAD). FINDINGS: There is no evidence of suspicious mass or architectural distortion. Noworrisome calcifications are evident. There has been no significantchange from prior exam(s). BREAST DENSITY: B - There are scattered areas of fibroglandular density. IMPRESSION: No mammographic evidence of malignancy. BI-RADS CATEGORY: 1 - NEGATIVE RECOMMENDATION: Screening bilateral mammogram is recommended in 1 year. Mammo Location: [facility], [address] [place] [address], [id number], . -------- FINAL REPORT -------- Dictated By: Farida Pena Dictated Date: 11/21/2024 10:36 ET Assigned Physician: Farida Pena Reviewed and Electronically Signed By: Farida Pena Signed Date: 11/21/2024 10:45 ET Workstation ID: [id number] Transcribed By: Self Edit Transcribed Date: 11/21/2024 10:36 ET us Karly Pineda MD IMG BI PROCEDURES Final Resul t from Last 3 Months Insurance [employer] Care Teams Laborer/Grade Check Relationship Specialty Start Date End Date Karly Pineda MD [address] [place] [phone] PCP - General Internal Medicine 10/20/19
== END 2025-02-02 13:07 | disposition home or self-care (01) ==
LOC: HO.HMGCLDS 13:06
PROVIDERS: PCP Internal Medicine; Visit Provider Internal Medicine
DX: M25.50 Pain in unspecified joint (principal)
CPT/HCPCS: 36415; 86140